=== PATIENT | male | born 1975 | race Caucasian/White ===

== ENCOUNTER 2022-10-22 09:10 | Outpatient (CLI) | payer OTHER, SELFPAY | END 2022-10-22 09:11 | disposition home or self-care (01) | PROVIDERS: PCP Family Medicine; Visit Provider Family Medicine | DX: Z00.00 Encounter for general adult medical examination without abnormal findings (principal); R03.0 Elevated blood-pressure reading, without diagnosis of hypertension | CPT/HCPCS: 80053; 80061; 84153; 84270; 84402; 84403 ==

== ENCOUNTER 2022-11-19 08:44 | Outpatient (CLI) | payer OTHER, SELFPAY ==
--- NOTE | 2022-11-19 07:52 | W.ANESCHARGE ---
Anesthesia Charges Start Date/Time Anesthesia Start Date: 11/19/22 Anesthesia Start Time: 09:41 Stop Date/Time Anesthesia Stop Date: 11/19/22 Anesthesia Stop Time: 10:30
--- NOTE | 2022-11-19 10:28 | W.ANESCHARGE ---
Anesthesia Charges Start Date/Time Anesthesia Start Date: 11/19/22 Anesthesia Start Time: 09:41 Stop Date/Time Anesthesia Stop Date: 11/19/22 Anesthesia Stop Time: 10:30
== END 2022-11-19 08:45 | disposition home or self-care (01) ==
LOC: OP CLINIC 08:46
PROVIDERS: PCP Family Medicine; Visit Provider Surgery
DX: Z12.11 Encounter for screening for malignant neoplasm of colon (principal); K63.5 Polyp of colon; K62.1 Rectal polyp
CPT/HCPCS: 45385; 811; 88305; J2704

== ENCOUNTER 2023-02-04 11:34 | Outpatient (CLI) | payer OTHER, SELFPAY | END 2023-02-04 11:35 | disposition home or self-care (01) | PROVIDERS: PCP Family Medicine; Referring Provider Family Medicine; Visit Provider Family Medicine | DX: Z00.00 Encounter for general adult medical examination without abnormal findings (principal); I10 Essential (primary) hypertension; R79.89 Other specified abnormal findings of blood chemistry; E55.9 Vitamin D deficiency, unspecified | CPT/HCPCS: 80053; 82306; 84270; 84402; 84403 ==

== ENCOUNTER 2023-03-18 08:20 | Outpatient (CLI) | payer OTHER, SELFPAY | END 2023-03-18 08:21 | disposition home or self-care (01) | LOC: NFLDREF 03-19 10:36 | PROVIDERS: PCP Family Medicine; Referring Provider Family Medicine; Visit Provider Family Medicine | DX: I10 Essential (primary) hypertension (principal); R79.89 Other specified abnormal findings of blood chemistry | CPT/HCPCS: 80076; 84270; 84402; 84403 ==

== ENCOUNTER 2023-08-02 08:40 | Outpatient (CLI) | payer OTHER, SELFPAY | END 2023-08-02 08:41 | disposition home or self-care (01) | LOC: NFLDREF 08-07 12:45 | PROVIDERS: PCP Family Medicine; Referring Provider Family Medicine; Visit Provider Family Medicine | DX: E66.9 Obesity, unspecified (principal); I10 Essential (primary) hypertension; R79.89 Other specified abnormal findings of blood chemistry; E78.00 Pure hypercholesterolemia, unspecified | CPT/HCPCS: 80053; 80061; 82652; 84270; 84402; 84403 ==

== ENCOUNTER 2023-08-14 11:59 | Outpatient (CLI) | payer OTHER, SELFPAY | END 2023-08-14 12:00 | disposition home or self-care (01) | LOC: LKVREF 11:59 | PROVIDERS: PCP Family Medicine; Visit Provider Physician Assistant Medical | DX: S91.102A Unspecified open wound of left great toe without damage to nail, initial encounter (principal); B95.61 Methicillin susceptible Staphylococcus aureus infection as the cause of diseases classified elsewhere | CPT/HCPCS: 87070; 87186 ==

== ENCOUNTER 2023-08-16 10:35 | Emergency (ER) | payer OTHER, SELFPAY ==
[2023-08-16 10:44] VITALS: BP 153/100; PULSE 73; RESP 18; TEMP 36.4; O2SAT 95; BMI 41.1
--- NOTE | 2023-08-16 11:20 | ED.LOWEXIN ---
HPI - Extremity Injury (Lower) General Chief Complaint: Extremity Pain/Injury, Lower Stated Complaint: infection in toe Time Seen by Provider: 08/16/23 10:52 History of Present Illness HPI Narrative: This 48-year-old male comes in for recheck of a wound on his left great toe. He was seen in urgent care 2 days ago and started on doxycycline. He was vacationing in [place] prior to this and states that he had a pedicure and did a lot of walking. He developed an ulceration on the plantar surface of his left great toe. He has some decreased sensation in this area but does not have any history of peripheral neuropathy or diabetes. He was instructed to come in if any worsening symptoms happened. He states that he was probably more active than he should have been yesterday and comes in today because of some mild swelling in his left foot. He does not have any fever. A culture was obtained a couple days ago and returns with evidence of Staph aureus. Sensitivities are not available. He was told to come into the emergency department if things are worsening with and would probably need IV antibiotics in that case. Related Data Previous Rx's Medication Instructions Recorded triamterene 37.5 1 tab PO QDAY #90 tabs 11/09/22 mg-hydrochlorothiazide 25 mg tablet cholecalciferol (vitamin D3) 125 125 mcg PO QDAY #90 caps 02/07/23 mcg (5,000 unit) capsule testosterone cypionate 200 mg/mL 200 mg IM Q2W #10 mL 05/06/23 intramuscular oil (Depo-Testosterone) doxycycline monohydrate 100 mg 100 mg PO BID 10 days #20 caps 08/14/23 capsule Allergies Allergy/AdvReac Type Severity Reaction Status Date / Time No Known Drug Allergies Allergy Verified 08/16/23 10:43 Review of Systems Status of ROS: Reports: 10 or more systems reviewed and unremarkable except as noted in History and below Narrative: Constitutional: No fevers, no weight gain or loss. Eyes: No discharge. No vision changes. HENT: No congestion, no sore throat, no ear pain. Cardiovascular: No chest pain, no palpitations. Respiratory: No shortness of breath, no wheezes, no cough. Gastrointestinal: No abdominal pain, no vomiting, no diarrhea. Genitourinary: No dysuria, no hematuria. Musculoskeletal: Normal range of motion. Skin: No rashes, no pruritis. Neurological: No dizziness, weakness, sensory change, speech change. Endo/Heme/Allergies: No bruising or bleeding. No polydipsia. Pysch: no suicidality, no anxiety, no insomnia. All other systems reviewed and are negative. [facility] Medical History (Updated 08/14/23 @ 09:45 by Farzaneh Colon PA-C) Obesity ?E66.9 - Obesity, unspecified (ICD-10) Vitamin D deficiency ?E55.9 - Vitamin D deficiency, unspecified (ICD-10) Skin tags, multiple acquired ?L91.8 - Other hypertrophic disorders of the skin (ICD-10) HTN (hypertension) ?I10 - Essential (primary) hypertension (ICD-10) Low testosterone in male ?R79.89 - Other specified abnormal findings of blood chemistry (ICD-10) Skin lesions, generalized ?L98.9 - Disorder of the skin and subcutaneous tissue, unspecified (ICD-10) Social History Little interest or pleasure in doing things: not at all Feeling down, depressed, or hopeless: not at all Exam Narrative: Exam Narrative: Constitutional: Well-developed, well-nourished, no acute distress. HEENT: Normocephalic, atraumatic. Neck: Normal range of motion. Nontender. Supple. Heart: Regular. No murmurs. Normal rate. Intact distal pulses. Lungs: Clear to auscultation. No chest discomfort. No wheezes, rhonchi, or rales. Abdomen: Normal bowel sounds. Nontender. No rebound tenderness. Genitalia: Deferred. Back: No midline tenderness. Normal range of motion. Extremities: Normal range of motion. Ulceration on the plantar surface of the left great toe. There is no purulent discharge. No significant surrounding erythema. Skin: Intact. No rash. Warm. No erythema or pallor. Neurologic: No altered sensation. No weakness. Alert and oriented. Psychiatric: No suicidality. No anxiety or depression. No insomnia. Nursing notes and vitals signs are reviewed. Const: Vital Signs, click to edit/add: Vital Signs - 24 hr 08/16/23 10:44 Temperature 97.5 F L Pulse Rate [Pulse Oximeter] 73 Respiratory Rate 18 Blood Pressure [Ri ght Upper Arm] 153/100 H Pulse Oximetry 95 Oxygen Delivery Me thod Room Air Course Vital Signs Vital signs: Initial Vital Signs Temperature 97.5 F L 08/16/23 10:44 Temperature Source Temporal Artery Scan 08/16/23 10:44 Pulse Rate 73 08/16/23 10:44 Respiratory Rate 18 08/16/23 10:44 Blood Pressure 153/100 H 08/16/23 10:44 Blood Pressure Mean 117 H 08/16/23 10:44 Blood Pressure Position Sitting 08/16/23 10:44 Pulse Oximetry 95 08/16/23 10:44 Oxygen Delivery Method Room Air 08/16/23 10:44 Vital Signs Temperature 97.5 F L 08/16/23 10:44 Pulse Rate 73 08/16/23 10:44 Respiratory Rate 18 08/16/23 10:44 Blood Pressure 153/100 H 08/16/23 10:44 Pulse Oximetry 95 08/16/23 10:44 Oxygen Delivery Method Room Air 08/16/23 10:44 Temperature 97.5 F L 08/16/23 10:44 Pulse Rate 73 08/16/23 10:44 Respiratory Rate 18 08/16/23 10:44 Blood Pressure 153/100 H 08/16/23 10:44 Pulse Oximetry 95 08/16/23 10:44 Oxygen Delivery Method Room Air 08/16/23 10:44 MDM - Extremity Injury (Lower) MDM Narrative Medical decision making narrative: This patient comes in because he was told that he might need IV antibiotics. He is taking doxycycline for an ulceration on his left great toe after having a pedicure and walking excessively on vacation. A culture was obtained and returns with evidence of a Staph aureus infection. It appears that doxycycline is an appropriate treatment for this condition. The wound itself in my opinion does not appear to be infected. The patient arrives with normal vital signs except for a little hypertensive blood pressure which is not new for him. I did discuss lab and imaging options that we could employ but it was agreed to give him a shot of Rocephin 1 g intramuscularly. I do not think that this is unnecessary treatment but seeing that he was told by others that he needed to come to the emergency department might need IV antibiotics, his expectation for some kind of treatment to get him better quicker was increased. I did advise him regarding signs and symptoms that would truly indicate a need for return and re-evaluation. Discharge Plan Discharge Patient Disposition: Home, Self-Care Condition: Stable Additional Instructions: Continue doxycycline as prescribed. Follow up with MD or return if worsening. Prescriptions: No Action testosterone cypionate [Depo-Testosterone] 200 mg/mL oil 200 mg IM Q2W Qty: 10 1RF Rx Instructions: provide with supplies doxycycline monohydrate 100 mg capsule 100 mg PO BID 10 Days Qty: 20 0RF Rx Instructions: One capsule twice daily for 10 days, for foot wound triamterene-hydrochlorothiazid 37.5-25 mg tablet 1 tab PO QDAY Qty: 90 2RF cholecalciferol (vitamin D3) 125 mcg (5,000 unit) capsule 125 mcg PO QDAY Qty: 90 2RF Follow Up/Referrals: Perfecto Jimenez MD [Primary Care Provider] - Stand Alone Forms: [email or web address] Info Instructions
[2023-08-16] MEDS: cefTRIAXone 1 GM VIAL IM (11:34)
[2023-08-16] MEDS: LIDOCAINE 1% 5 ml (pf) 5 ML VIAL 2.1 ML IM (11:35)
[2023-08-16 11:56] VITALS: BP 153/100; PULSE 73; RESP 18; TEMP 36.4
== END 2023-08-16 11:56 | disposition home or self-care (01) ==
PROVIDERS: Emergency Provider Emergency Medicine Emergency Medical Services; PCP Family Medicine
DX: S91.102A Unspecified open wound of left great toe without damage to nail, initial encounter (principal); B95.61 Methicillin susceptible Staphylococcus aureus infection as the cause of diseases classified elsewhere
CPT/HCPCS: 96372; 99284; J0696

== ENCOUNTER 2023-11-18 08:36 | Outpatient (CLI) | payer OTHER, SELFPAY | END 2023-11-18 08:37 | disposition home or self-care (01) | LOC: NFLDREF 11-21 12:27 | PROVIDERS: PCP Family Medicine; Referring Provider Family Medicine; Visit Provider Family Medicine | DX: R79.89 Other specified abnormal findings of blood chemistry (principal); Z13.220 Encounter for screening for lipoid disorders | CPT/HCPCS: 80061; 80076; 84270; 84402; 84403 ==

== ENCOUNTER 2024-02-13 16:28 | Outpatient (CLI) | payer OTHER, SELFPAY | END 2024-02-13 16:29 | disposition home or self-care (01) | LOC: NFLDREF 02-17 21:11 | PROVIDERS: PCP Family Medicine; Referring Provider Family Medicine; Visit Provider Family Medicine | DX: R79.89 Other specified abnormal findings of blood chemistry (principal); I10 Essential (primary) hypertension; Z13.220 Encounter for screening for lipoid disorders; Z12.5 Encounter for screening for malignant neoplasm of prostate | CPT/HCPCS: 80053; 80061; 84270; 84402; 84403; G0103 ==

== ENCOUNTER 2024-03-23 13:15 | Outpatient (RCR) | payer OTHER, SELFPAY | END 2024-07-21 23:59 | disposition home or self-care (01) | PROVIDERS: PCP Family Medicine; Visit Provider Family Medicine | DX: M54.2 Cervicalgia (principal); M62.830 Muscle spasm of back; Z51.89 Encounter for other specified aftercare | CPT/HCPCS: 97012; 97110; 97140; 97161; 97162 ==

== ENCOUNTER 2024-05-28 09:51 | Outpatient (CLI) | payer OTHER, SELFPAY | END 2024-05-28 09:52 | disposition home or self-care (01) | LOC: LKVREF 09:52 | PROVIDERS: PCP Family Medicine; Visit Provider Emergency Medicine | DX: I10 Essential (primary) hypertension (principal); Z01.818 Encounter for other preprocedural examination | CPT/HCPCS: 80048; 80076; 84270; 84402; 84403 ==

== ENCOUNTER 2024-08-14 08:38 | Outpatient (CLI) | payer OTHER, SELFPAY | END 2024-08-14 08:39 | disposition home or self-care (01) | LOC: NFLDREF 08-15 08:11 | PROVIDERS: PCP Family Medicine; Referring Provider Family Medicine; Visit Provider Family Medicine | DX: R79.89 Other specified abnormal findings of blood chemistry (principal); I10 Essential (primary) hypertension; E55.9 Vitamin D deficiency, unspecified; E66.9 Obesity, unspecified; R53.83 Other fatigue; D64.9 Anemia, unspecified | CPT/HCPCS: 80076; 84270; 84402; 84403 ==

== ENCOUNTER 2024-08-21 09:00 | Outpatient (RCR) | payer OTHER, SELFPAY | END 2024-12-19 23:59 | disposition home or self-care (01) | PROVIDERS: PCP Family Medicine; Visit Provider Physician Assistant | DX: Z48.89 Encounter for other specified surgical aftercare (principal); Z51.89 Encounter for other specified aftercare | CPT/HCPCS: 97110; 97161 ==

== ENCOUNTER 2024-08-25 13:59 | Outpatient (CLI) | payer OTHER, SELFPAY ==
--- NOTE | 2024-09-15 11:32 | W.PM.SLEEP ---
Sleep Study Details Details Interpreting Provider: Satinder Date of Sleep Study: 08/25/24 Sleep Study Details: STUDY TYPE:? Home unattended ? BMI:? 40.4 ORDERING PROVIDER:? Barbara INDICATION:? Concern about sleep apnea ? SLEEP SUMMARY:? 435 minutes monitored RESPIRATORY SUMMARY:? AHI 60.8. There were 106 central apneas, 117 obstructive apneas, 204 hypopneas. Low oxygen 70 38.1% of study oxygen less than 90% Snoring 87.2% PERIODIC LIMB MOVEMENTS OF SLEEP:? Not recorded CARDIAC:? Range 40-96, mean 73.7 beats per minute IMPRESSION:? Bradycardia noted during study with heart rate as low as 40. 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 If patient has not had an echocardiogram would recommend he obtain 1 prior to titration in the event that he requires an ASV.
== END 2024-08-25 14:00 | disposition home or self-care (01) ==
PROVIDERS: PCP Family Medicine; Visit Provider Family Medicine
DX: G47.33 Obstructive sleep apnea (adult) (pediatric) (principal); G47.31 Primary central sleep apnea
CPT/HCPCS: 95806

== ENCOUNTER 2024-11-20 08:35 | Outpatient (CLI) | payer OTHER, SELFPAY | END 2024-11-20 08:36 | disposition home or self-care (01) | LOC: NFLDREF 11-24 17:50 | PROVIDERS: PCP Family Medicine; Referring Provider Family Medicine; Visit Provider Family Medicine | DX: R79.89 Other specified abnormal findings of blood chemistry (principal); D64.9 Anemia, unspecified; R53.83 Other fatigue | CPT/HCPCS: 80076; 84270; 84402; 84403 ==

== ENCOUNTER 2025-02-19 08:19 | Outpatient (CLI) | payer OTHER, SELFPAY | END 2025-02-19 08:20 | disposition home or self-care (01) | LOC: LKVREF 15:27 | PROVIDERS: PCP Family Medicine; Referring Provider Family Medicine; Visit Provider Family Medicine | DX: R53.83 Other fatigue (principal); I10 Essential (primary) hypertension; R79.89 Other specified abnormal findings of blood chemistry; Z00.00 Encounter for general adult medical examination without abnormal findings | CPT/HCPCS: 80053; 80061; 84270; 84402; 84403; G0103 ==